=== PATIENT | male | born 1985 | race Caucasian/White ===

== ENCOUNTER 2018-11-21 18:30 | Emergency (ER) | payer BC ==
--- NOTE | 2018-11-21 18:53 | EDM.PDOC ---
ED HPI GENERAL MEDICAL PROBLEM - General Chief Complaint: Skin Complaint Stated Complaint: PT HAS BED BUGS Time Seen by Provider: 11/21/18 18:43 Source of Information: Reports: Patient History Limitations: Reports: No Limitations - History of Present Illness INITIAL COMMENTS - FREE TEXT/NARRATIVE: History of present illness: []Patient is staying a facility that has bedbugs and has bites to his inner right thigh, left leg and right elbow. He saw the bedbugs and he has moved to a different facility. He denies any fevers or any other problems or concerns. Review of systems: As per history of present illness and below otherwise all systems reviewed and negative. Past medical history: As per history of present illness and as reviewed below otherwise noncontributory. Surgical history: As per history of present illness and as reviewed below otherwise noncontributory. Social history: No reported history of drug or alcohol abuse. Family history: As per history of present illness and as reviewed below otherwise noncontributory. Physical exam: General: Well developed, well nourished in NAD HEENT: Atraumatic, normocephalic, pupils reactive, negative for conjunctival pallor or scleral icterus, mucous membranes moist, throat clear, neck supple, nontender, trachea midline. Lungs: Clear to auscultation, breath sounds equal bilaterally, chest nontender. Heart: S1S2, regular, negative for clicks, rubs, or JVD. Abdomen: NABS, Soft, nondistended, nontender. Negative for masses or hepatosplenomegaly. Negative for costovertebral tenderness. Pelvis: Stable nontender. Genitourinary: Deferred. Rectal: Deferred. Extremities: Atraumatic, negative for cords or calf pain. Neurovascular unremarkable. Neuro: Awake, alert, oriented. Cranial nerves II through XII unremarkable. Cerebellum unremarkable. Motor and sensory unremarkable throughout. Exam nonfocal. Skin:warm and dry Diagnostics: None Therapeutics: None ED Course: Stable Impression: Insect bites Prescriptions: None Plan: Benadryl for itching, follow-up with primary care as needed or if symptoms worsen or change. Definitive disposition and diagnosis as appropriate pending reevaluation and review of above. - Related Data Allergies Allergy/AdvReac Type Severity Reaction Status Date / Time No Known Allergies Allergy Verified 11/21/18 18:54 Home Meds: Home Meds . [No Known Home Meds] 11/21/18 [History] ED ROS GENERAL - Review of Systems Review Of Systems: See Below ED EXAM, SKIN/RASH Exam: See Below Course - Vital Signs Last Recorded V/S: Last Vital Signs Temp 98.0 F 11/21/18 18:55 Pulse 77 11/21/18 18:55 Resp 17 11/21/18 18:55 BP 145/60 H 11/21/18 18:55 Pulse Ox 95 11/21/18 18:55 Departure - Departure Time of Disposition: 19:04 Disposition: Home, Self-Care 01 Condition: Good Clinical Impression: Insect bites Qualifiers: Encounter type: initial encounter Site of insect bite: unspecified site Qualified Code(s): W57.XXXA - Bitten or stung by nonvenomous insect and other nonvenomous arthropods, initial encounter - Discharge Information *PRESCRIPTION DRUG MONITORING PROGRAM REVIEWED*: No *COPY OF PRESCRIPTION DRUG MONITORING REPORT IN PATIENT PRATEEK: No Referrals: PCP,None [Primary Care Provider] - Forms: ED Department Discharge Additional Instructions: The following information is given to patients seen in the emergency department who are being discharged to home. This information is to outline your options for follow-up care. We provide all patients seen in our emergency department with a follow-up referral. The need for follow-up, as well as the timing and circumstances, are variable depending upon the specifics of your emergency department visit. If you don't have a primary care physician on staff, we will provide you with a referral. We always advise you to contact your personal physician following an emergency department visit to inform them of the circumstance of the visit and for follow-up with them and/or the need for any referrals to a consulting specialist. The emergency department will also refer you to a specialist when appropriate. This referral assures that you have the opportunity for follow-up care with a specialist. All of these measure are taken in an effort to provide you with optimal care, which includes your follow-up. Under all circumstances we always encourage you to contact your private physician who remains a resource for coordinating your care. When calling for follow-up care, please make the office aware that this follow-up is from your recent emergency room visit. If for any reason you are refused follow-up, please contact the [facility] Emergency Department at and asked to speak to the emergency department charge nurse. [facility] [place] [address]
== END 2018-11-21 19:19 | disposition home or self-care (01) ==
LOC: MW.ED 18:30
DX: S70.361A Insect bite (nonvenomous), right thigh, initial encounter (principal); S80.861A Insect bite (nonvenomous), right lower leg, initial encounter; S50.361A Insect bite (nonvenomous) of right elbow, initial encounter; W57.XXXA Bitten or stung by nonvenomous insect and other nonvenomous arthropods, initial encounter
CPT/HCPCS: 99282

== ENCOUNTER 2018-11-27 14:44 | Emergency (ER) | payer BC ==
[2018-11-27] MEDS ORDERED: Ibuprofen 400 MG Tab PO ONE (14:53)
[2018-11-27] MEDS ORDERED: Sodium Chloride 0.9% 1,000 ML IV ONE ×2 (14:53→16:01)
--- NOTE | 2018-11-27 15:06 | EDM.PDOC ---
ED HPI GENERAL MEDICAL PROBLEM - General Chief Complaint: Fever Stated Complaint: FEVER,CHILLS Time Seen by Provider: 11/27/18 14:50 - History of Present Illness INITIAL COMMENTS - FREE TEXT/NARRATIVE: HISTORY AND PHYSICAL: History of present illness: Patient 33-year-old white male with no significant pre-or history presents with a concern of fever generalized weakness and cough 1 day he denies abdominal pain chest pain has had a mild sore throat denies nausea vomiting or diarrhea patient is a smoker. Review of systems: As per history of present illness and below otherwise all systems reviewed and negative. Past medical history: As per history of present illness and as reviewed below otherwise noncontributory. Surgical history: As per history of present illness and as reviewed below otherwise noncontributory. Social history: No reported history of drug or alcohol abuse. Family history: As per history of present illness and as reviewed below otherwise noncontributory. Physical exam: HEENT: Atraumatic, normocephalic, pupils reactive, negative for conjunctival pallor or scleral icterus, mucous membranes moist, throat clear, neck supple, nontender, trachea midline. Lungs: Clear to auscultation, breath sounds equal bilaterally, chest nontender. Heart: S1S2, regular, negative for clicks, rubs, or JVD. Abdomen: Soft, nondistended, nontender. Negative for masses or hepatosplenomegaly. Negative for costovertebral tenderness. Pelvis: Stable nontender. Genitourinary: Deferred. Rectal: Deferred. Extremities: Atraumatic, negative for cords or calf pain. Neurovascular unremarkable. Neuro: Awake, alert, oriented. Cranial nerves II through XII unremarkable. Cerebellum unremarkable. Motor and sensory unremarkable throughout. Exam nonfocal. Diagnostics: CBC CMP blood culture 2 rapid strep chest x-ray Therapeutics: Saline 1 L bolus Motrin 400 mg by mouth Impression: #1 fever #2 pneumonitis Definitive disposition and diagnosis as appropriate pending reevaluation and review of above. headache, body Pain Score (Numeric/FACES): 5 - Related Data Allergies Allergy/AdvReac Type Severity Reaction Status Date / Time No Known Allergies Allergy Verified 11/27/18 14:52 Home Meds: Home Meds . [No Known Home Meds] 11/21/18 [History] Past Medical History - Past Health History Medical/Surgical History: Denies Medical/Surgical History Other Musculoskeletal History: hx fractured lower vertebrae - Infectious Disease History Infectious Disease History: Reports: Chicken Pox Social & Family History - Family History Family Medical History: Noncontributory - Tobacco Use Smoking Status *Q: Current Every Day Smoker Years of Tobacco use: 15 Packs/Tins Daily: 1 - Caffeine Use Caffeine Use: Reports: Coffee, Energy Drinks - Recreational Drug Use Recreational Drug Use: No ED ROS GENERAL - Review of Systems Review Of Systems: ROS reveals no pertinent complaints other than HPI. ED EXAM, GENERAL - Physical Exam Exam: See Below (See dictation) Course - Vital Signs Last Recorded V/S: Last Vital Signs Temp 37.4 C 11/27/18 17:00 Pulse 104 H 11/27/18 17:00 Resp 20 11/27/18 17:00 BP 105/41 L 11/27/18 17:00 Pulse Ox 95 11/27/18 17:00 - Orders/Labs/Meds Orders: Active Orders 24 hr Category Date Time Status CULTURE BLOOD [BC] Stat Lab 11/27/18 15:05 Received CULTURE BLOOD [BC] Stat Lab 11/27/18 15:16 Received CULTURE STREP A CONFIRMATION [RM] Stat Lab 11/27/18 15:10 Results STREP SCRN A RAPID W CULT CONF [RM] Stat Lab 11/27/18 15:10 Results Blood Culture x2 Reflex Set [OM.PC] Stat Oth 11/27/18 14:53 Ordered Labs: Laboratory Tests 11/27/18 11/27/18 11/27/18 Range/Units 15:05 15:05 15:05 WBC 16.44 H (4.0-11.0) K/uL RBC 5.14 (4.50-5.90) M/uL Hgb 15.3 (13.0-17.0) g/dL Hct 44.8 (38.0-50.0) % MCV 87.2 (80.0-98.0) fL MCH 29.8 (27.0-32.0) pg MCHC 34.2 (31.0-37.0) g/dL RDW Std Deviation 45.0 (28.0-62.0) fl RDW Coeff of Cindy 14 (11.0-15.0) % Plt Count 235 (150-400) K/uL MPV 9.60 (7.40-12.00) fL Neut % (Auto) 83.0 H (48.0-80.0) % Lymph % (Auto) 7.9 L (16.0-40.0) % Citrus % (Auto) 8.9 (0.0-15.0) % Eos % (Auto) 0.0 (0.0-7.0) % Baso % (Auto) 0.2 (0.0-1.5) % Neut # (Auto) 13.7 H (1.4-5.7) K/uL Lymph # (Auto) 1.3 (0.6-2.4) K/uL [place] # (Auto) 1.5 H (0.0-0.8) K/uL Eos # (Auto) 0.0 (0.0-0.7) K/uL Baso # (Auto) 0.0 (0.0-0.1) K/uL Nucleated RBC % 0.0 /100WBC Nucleated RBCs # 0 K/uL Lactate 1.4 (0.20-2.00) mmol/L Sodium 134 L (136-148) mmol/L Potassium 4.2 (3.5-5.1) mmol/L Chloride 101 (98-107) mmol/L Carbon Dioxide 23.8 (21.0-32.0) mmol/L BUN 18 (7.0-18.0) mg/dL Creatinine 1.1 (0.8-1.3) mg/dL Est Cr Clr Drug Dosing 92.41 mL/min Estimated GFR (MDRD) > 60.0 ml/min Glucose 106 (74-106) mg/dL Calcium 8.6 (8.5-10.1) mg/dL Total Bilirubin 0.6 (0.2-1.0) mg/dL AST 16 (15-37) IU/L ALT 34 (14-63) IU/L Alkaline Phosphatase 97 (46-116) U/L Total Protein 7.7 (6.4-8.2) g/dL Albumin 3.8 (3.4-5.0) g/dL Globulin 3.9 (2.6-4.0) g/dL Albumin/Globulin Ratio 1.0 (0.9-1.6) Urine Color Urine Appearance Urine pH (5.0-8.0) Ur Specific [place] (1.001-1.035) Urine Protein (NEGATIVE) mg/dL Urine Glucose (UA) (NEGATIVE) mg/dL Urine Ketones (NEGATIVE) mg/dL Urine Occult Blood (NEGATIVE) Urine Nitrite (NEGATIVE) Urine Bilirubin (NEGATIVE) Urine Urobilinogen (<2.0) EU/dL Ur Leukocyte Esterase (NEGATIVE) 11/27/18 Range/Units 16:20 WBC (4.0-11.0) K/uL RBC (4.50-5.90) M/uL Hgb (13.0-17.0) g/dL Hct (38.0-50.0) % MCV (80.0-98.0) fL MCH (27.0-32.0) pg MCHC (31.0-37.0) g/dL RDW Std Deviation (28.0-62.0) fl RDW Coeff of Cindy (11.0-15.0) % Plt Count (150-400) K/uL MPV (7.40-12.00) fL Neut % (Auto) (48.0-80.0) % Lymph % (Auto) (16.0-40.0) % [place] % (Auto) (0.0-15.0) % Eos % (Auto) (0.0-7.0) % Baso % (Auto) (0.0-1.5) % Neut # (Auto) (1.4-5.7) K/uL Lymph # (Auto) (0.6-2.4) K/uL [place] # (Auto) (0.0-0.8) K/uL Eos # (Auto) (0.0-0.7) K/uL Baso # (Auto) (0.0-0.1) K/uL Nucleated RBC % /100WBC Nucleated RBCs # K/uL Lactate (0.20-2.00) mmol/L Sodium (136-148) mmol/L Potassium (3.5-5.1) mmol/L Chloride (98-107) mmol/L Carbon Dioxide (21.0-32.0) mmol/L BUN (7.0-18.0) mg/dL Creatinine (0.8-1.3) mg/dL Est Cr Clr Drug Dosing mL/min Estimated GFR (MDRD) ml/min Glucose (74-106) mg/dL Calcium (8.5-10.1) mg/dL Total Bilirubin (0.2-1.0) mg/dL AST (15-37) IU/L ALT (14-63) IU/L Alkaline Phosphatase (46-116) U/L Total Protein (6.4-8.2) g/dL Albumin (3.4-5.0) g/dL Globulin (2.6-4.0) g/dL Albumin/Globulin Ratio (0.9-1.6) Urine Color YELLOW Urine Appearance CLEAR Urine pH 6.0 (5.0-8.0) Ur Specific [place] 1.020 (1.001-1.035) Urine Protein NEGATIVE (NEGATIVE) mg/dL Urine Glucose (UA) NEGATIVE (NEGATIVE) mg/dL Urine Ketones NEGATIVE (NEGATIVE) mg/dL Urine Occult Blood NEGATIVE (NEGATIVE) Urine Nitrite NEGATIVE (NEGATIVE) Urine Bilirubin NEGATIVE (NEGATIVE) Urine Urobilinogen 0.2 (<2.0) EU/dL Ur Leukocyte Esterase NEGATIVE (NEGATIVE) Meds: Medications Discontinued Medications Generic Name Dose Route Start Last Admin Trade Name Freq PRN Reason Stop Dose Admin Acetaminophen 1,000 mg 11/27/18 16:02 11/27/18 16:19 Tylenol Extra Strength PO 11/27/18 16:03 1,000 mg ONETIME ONE Administration Sodium Chloride 1,000 mls @ 999 mls/hr 11/27/18 14:53 11/27/18 15:06 Normal Saline IV 11/27/18 15:53 999 mls/hr STAT ONE Administration Sodium Chloride 1,000 mls @ 999 mls/hr 11/27/18 16:01 11/27/18 16:19 Normal Saline IV 11/27/18 17:01 999 mls/hr .Bolus ONE Administration Ibuprofen 400 mg 11/27/18 14:53 11/27/18 15:07 Motrin PO 11/27/18 14:54 400 mg ONETIME ONE Administration Departure - Departure Time of Disposition: 17:22 Disposition: Home, Self-Care 01 Condition: Good Clinical Impression: Pneumonitis, Fever - Discharge Information Referrals: PCP,None [Primary Care Provider] - Forms: ED Department Discharge Additional Instructions: The following information is given to patients seen in the emergency department who are being discharged to home. This information is to outline your options for follow-up care. We provide all patients seen in our emergency department with a follow-up referral. The need for follow-up, as well as the timing and circumstances, are variable depending upon the specifics of your emergency department visit. If you don't have a primary care physician on staff, we will provide you with a referral. We always advise you to contact your personal physician following an emergency department visit to inform them of the circumstance of the visit and for follow-up with them and/or the need for any referrals to a consulting specialist. The emergency department will also refer you to a specialist when appropriate. This referral assures that you have the opportunity for followup care with a specialist. All of these measure are taken in an effort to provide you with optimal care, which includes your followup. Under all circumstances we always encourage you to contact your private physician who remains a resource for coordinating your care. When calling for followup care, please make the office aware that this follow-up is from your recent emergency room visit. If for any reason you are refused follow-up, please contact the [facility] emergency department at and asked to speak to the emergency department charge nurse. [facility] [address] [place] [address] Z-Lupillo as prescribed Motrin/Tylenol as directed push fluids follow primary care as discussed and return as needed as discussed - My Orders Last 24 Hours: My Active Orders 11/27/18 14:53 Blood Culture x2 Reflex Set [OM.PC] Stat 11/27/18 15:05 CULTURE BLOOD [BC] Stat 11/27/18 15:10 CULTURE STREP A CONFIRMATION [RM] Stat STREP SCRN A RAPID W CULT CONF [RM] Stat 11/27/18 15:16 CULTURE BLOOD [BC] Stat - Assessment/Plan Last 24 Hours: My Active Orders 11/27/18 14:53 Blood Culture x2 Reflex Set [OM.PC] Stat 11/27/18 15:05 CULTURE BLOOD [BC] Stat 11/27/18 15:10 CULTURE STREP A CONFIRMATION [RM] Stat STREP SCRN A RAPID W CULT CONF [RM] Stat 11/27/18 15:16 CULTURE BLOOD [BC] Stat
[2018-11-27 15:45] LABS: CHLORIDE,CL 101 mmol/L (98-107); SODIUM,NA 134 mmol/L (136-148)
--- NOTE | 2018-11-27 15:59 | CR ---
EXAMINATION: Portable chest radiograph. HISTORY: Shortness breath. FINDINGS: The trachea is midline. The cardiomediastinal silhouette is within normal limits. No pulmonary infiltrates, effusions or pneumothorax. Osseous structures appear unremarkable. IMPRESSION: No acute cardiopulmonary process.
[2018-11-27] MEDS ORDERED: Acetaminophen 500 MG Tab PO ONE (16:02)
== END 2018-11-27 17:40 | disposition home or self-care (01) ==
LOC: MW.ED 14:44
DX: J18.9 Pneumonia, unspecified organism (principal); F17.210 Nicotine dependence, cigarettes, uncomplicated
CPT/HCPCS: 36415; 71045; 80053; 81003; 83605; 85025; 87040; 87081; 87880; 96360; 96361; 99283; A9270; J7040

== ENCOUNTER 2018-11-28 21:30 | Observation (INO) | payer BC ==
[2018-11-28] MEDS ORDERED: Sodium Chloride 0.9% 1,000 ML IV ONE (21:58)
[2018-11-28] MEDS ORDERED: Sodium Chloride 0.9% 10 ML Syringe FLUSH PRN (21:58)
[2018-11-28] MEDS ORDERED: Sodium Chloride 0.9% 2.5 ML Syringe FLUSH PRN (21:58)
--- NOTE | 2018-11-28 21:59 | EDM.PDOC ---
<Vashti Zhu - Last Filed: 11/28/18 23:01> ED HPI GENERAL MEDICAL PROBLEM - General Chief Complaint: Gastrointestinal Problem Stated Complaint: PT HAS DIARRHEA Time Seen by Provider: 11/28/18 21:59 Source of Information: Reports: Patient History Limitations: Reports: No Limitations - History of Present Illness INITIAL COMMENTS - FREE TEXT/NARRATIVE: HISTORY AND PHYSICAL: History of present illness: patient is a 33-year-old male presents to the ED with complaint of diarrhea. He states he was seen in the ED yesterday for cough and shortness of breath and feeling weak. He states he is given azithromycin and states he has left yesterday he has been having a lot of watery diarrhea to the point where he is incontinent. He has had chills but denies fevers and he states he's been having a crampy abdominal pain. He has had a couple episodes of vomiting. Denies dysuria, hematuria, melena, hematochezia. he denies significant past medical history and denies abdominal surgeries. Review of systems: As per history of present illness and below otherwise all systems reviewed and negative. Past medical history: As per history of present illness and as reviewed below otherwise noncontributory. Surgical history: As per history of present illness and as reviewed below otherwise noncontributory. Social history: No reported history of drug or alcohol abuse. Family history: As per history of present illness and as reviewed below otherwise noncontributory. Physical exam: General: Patient sitting comfortably in no acute distress and nontoxic appearing HEENT: Atraumatic, normocephalic, pupils reactive, negative for conjunctival pallor or scleral icterus, mucous membranes moist, throat clear, neck supple, nontender, trachea midline. No meningeal signs. Lungs: Clear to auscultation, breath sounds equal bilaterally, chest nontender. Heart: S1S2, regular, negative for clicks, rubs, or overt murmur. Abdomen: mild diffuse abdominal tenderness. Soft, nondistended. Negative for masses or hepatosplenomegaly. Negative for costovertebral tenderness. No rigidity, rebound, guarding. Pelvis: Stable nontender. Genitourinary: Deferred. Rectal: Deferred. Extremities: Atraumatic, negative for cords or calf pain. Neurovascular unremarkable. Neuro: Awake, alert, oriented. Cranial nerves II through XII unremarkable. Cerebellum unremarkable. Motor and sensory unremarkable throughout. Exam nonfocal. Notes: Diagnostics: CBC, CMP, lipase, UA, CT abdomen pelvis with contrast Therapeutics: 1L NS IV Prescriptions: Impression: Diarrhea, gastroenteritis Plan: Definitive disposition and diagnosis as appropriate pending reevaluation and review of above. Abdomen Pain Score (Numeric/FACES): 4 - Related Data Allergies Allergy/AdvReac Type Severity Reaction Status Date / Time No Known Allergies Allergy Verified 11/28/18 21:42 Home Meds: Home Meds . [No Known Home Meds] 11/21/18 [History] Past Medical History - Past Health History Medical/Surgical History: Denies Medical/Surgical History Other Musculoskeletal History: hx fractured lower vertebrae - Infectious Disease History Infectious Disease History: Reports: None Social & Family History - Family History Family Medical History: Noncontributory - Tobacco Use Smoking Status *Q: Current Every Day Smoker Years of Tobacco use: 13 Packs/Tins Daily: 1 - Caffeine Use Caffeine Use: Reports: Coffee, Energy Drinks, Tea - Recreational Drug Use Recreational Drug Use: No ED ROS GENERAL - Review of Systems Review Of Systems: ROS reveals no pertinent complaints other than HPI. ED EXAM, GI/ABD - Physical Exam Exam: See Below (see dictation) Course - Vital Signs Last Recorded V/S: Last Vital Signs Temp 37.1 C 11/29/18 00:45 Pulse 89 11/29/18 01:44 Resp 18 11/29/18 01:44 BP 136/66 11/29/18 01:44 Pulse Ox 94 L 11/29/18 01:44 - Orders/Labs/Meds Orders: Active Orders 24 hr Category Date Time Status Sodium Chloride 0.9% [Saline Flush] Med 11/28/18 21:58 Active 10 ml FLUSH ASDIRECTED PRN Sodium Chloride 0.9% [Saline Flush] Med 11/28/18 21:58 Active 2.5 ml FLUSH ASDIRECTED PRN Saline Lock Insert [OM.PC] Stat Oth 11/28/18 21:58 Ordered Medication Orders Sodium Chloride (Saline Flush) 10 ml FLUSH ASDIRECTED PRN PRN Reason: Keep Vein Open Sodium Chloride (Saline Flush) 2.5 ml FLUSH ASDIRECTED PRN PRN Reason: Keep Vein Open Labs: Laboratory Tests 11/28/18 11/28/18 11/28/18 Range/Units 22:19 22:19 22:19 WBC 13.09 H (4.0-11.0) K/uL RBC 5.30 (4.50-5.90) M/uL Hgb 15.7 (13.0-17.0) g/dL Hct 45.5 (38.0-50.0) % MCV 85.8 (80.0-98.0) fL MCH 29.6 (27.0-32.0) pg MCHC 34.5 (31.0-37.0) g/dL RDW Std Deviation 43.7 (28.0-62.0) fl RDW Coeff of Cindy 14 (11.0-15.0) % Plt Count 187 (150-400) K/uL MPV 9.20 (7.40-12.00) fL Neut % (Auto) 80.6 H (48.0-80.0) % Lymph % (Auto) 9.6 L (16.0-40.0) % [place] % (Auto) 9.5 (0.0-15.0) % Eos % (Auto) 0.1 (0.0-7.0) % Baso % (Auto) 0.2 (0.0-1.5) % Neut # (Auto) 10.6 H (1.4-5.7) K/uL Lymph # (Auto) 1.3 (0.6-2.4) K/uL [place] # (Auto) 1.3 H (0.0-0.8) K/uL Eos # (Auto) 0.0 (0.0-0.7) K/uL Baso # (Auto) 0.0 (0.0-0.1) K/uL Nucleated RBC % 0.0 /100WBC Nucleated RBCs # 0 K/uL Sodium 134 L (136-148) mmol/L Potassium 3.7 (3.5-5.1) mmol/L Chloride 98 (98-107) mmol/L Carbon Dioxide 25.8 (21.0-32.0) mmol/L BUN 11 (7.0-18.0) mg/dL Creatinine 1.1 (0.8-1.3) mg/dL Est Cr Clr Drug Dosing 92.41 mL/min Estimated GFR (MDRD) > 60.0 ml/min Glucose 101 (74-106) mg/dL Calcium 8.6 (8.5-10.1) mg/dL Total Bilirubin 0.5 (0.2-1.0) mg/dL AST 19 (15-37) IU/L ALT 32 (14-63) IU/L Alkaline Phosphatase 96 (46-116) U/L Total Protein 7.6 (6.4-8.2) g/dL Albumin 3.2 L (3.4-5.0) g/dL Globulin 4.4 H (2.6-4.0) g/dL Albumin/Globulin Ratio 0.7 L (0.9-1.6) Lipase 87 (73-393) U/L Urine Color YELLOW Urine Appearance CLEAR Urine pH 6.0 (5.0-8.0) Ur Specific [place] >= 1.030 (1.001-1.035) Urine Protein 100 H (NEGATIVE) mg/dL Urine Glucose (UA) NEGATIVE (NEGATIVE) mg/dL Urine Ketones NEGATIVE (NEGATIVE) mg/dL Urine Occult Blood MODERATE H (NEGATIVE) Urine Nitrite NEGATIVE (NEGATIVE) Urine Bilirubin NEGATIVE (NEGATIVE) Urine Urobilinogen 0.2 (<2.0) EU/dL Ur Leukocyte Esterase NEGATIVE (NEGATIVE) Urine RBC 0-2 (0-2/HPF) Urine WBC 0-1 (0-5/HPF) Ur Epithelial Cells RARE (NONE-FEW) Urine Bacteria RARE (NEGATIVE) Urine Mucus LIGHT (NONE-MOD) Meds: Medications Generic Name Dose Route Start Last Admin Trade Name Freq PRN Reason Stop Dose Admin Sodium Chloride 10 ml 11/28/18 21:58 Saline Flush FLUSH ASDIRECTED PRN Keep Vein Open Sodium Chloride 2.5 ml 11/28/18 21:58 Saline Flush FLUSH ASDIRECTED PRN Keep Vein Open Discontinued Medications Generic Name Dose Route Start Last Admin Trade Name Freq PRN Reason Stop Dose Admin Sodium Chloride 1,000 mls @ 999 mls/hr 11/28/18 21:58 11/28/18 22:15 Normal Saline IV 11/28/18 22:58 999 mls/hr STAT ONE Administration Metronidazole 500 mg/ Premix 100 mls @ 100 mls/hr 11/29/18 00:59 11/29/18 01: 10 IV 11/29/18 01:58 100 mls/hr ONETIME ONE Administration Levofloxacin/Dextrose 750 mg/ 150 mls @ 100 mls/hr 11/29/18 01:00 11/29/18 02 :10 Premix IV 11/29/18 02:29 100 mls/hr ONETIME ONE Administration Iopamidol 100 ml 11/28/18 23:46 11/28/18 23:46 Isovue Multipack-370 (76%) IVPUSH 11/28/18 23:47 100 ml ONETIME STA Administration Departure - Departure Disposition: Refer to Observation Condition: Good Clinical Impression: Diarrhea, Colitis - Discharge Information Referrals: PCP,None [Primary Care Provider] - Forms: ED Department Discharge <Jaspreet Lopez - Last Filed: 11/29/18 03:04> ED ROS GENERAL - Review of Systems Review Of Systems: ROS reveals no pertinent complaints other than HPI. ED EXAM, GI/ABD - Physical Exam Exam: See Below (C dictation) Departure - Departure Time of Disposition: 03:04
[2018-11-28 22:52] LABS: CHLORIDE,CL 98 mmol/L (98-107); SODIUM,NA 134 mmol/L (136-148)
[2018-11-28] MEDS ORDERED: Iopamidol 755 MG/ML 500 ML Multipack Bottle IVPUSH STA (23:46)
--- NOTE | 2018-11-29 00:12 | CT ---
INDICATION: Diarrhea for 2 days TECHNIQUE: CT Abdomen and pelvis with i.v. contrast. Coronal and sagittal reformats were obtained. CONTRAST: 100 mL Isovue 370 COMPARISON: None FINDINGS: Lower chest: Unremarkable. Liver: Unremarkable. Spleen: Unremarkable. Pancreas: Unremarkable. Gallbladder: Unremarkable. Kidney: Excretion of contrast into the renal collecting systems noted, which limits evaluation for the presence of stones. Adrenal: Unremarkable. Bowel: Mild to moderate concentric wall thickening is noted in the ascending colon. The appendix is normal in appearance and size. Vascular: Unremarkable. Lymph: Multiple retroperitoneal lymph nodes are present in the upper abdomen measuring up to 11 mm. Several right inguinal lymph nodes are present with largest measuring 9 mm. Peritoneum: Unremarkable. No pneumoperitoneum is seen. No significant ascites is noted. Pelvis: Unremarkable. Soft tissue: Unremarkable. Bone: Unremarkable for age. IMPRESSIONS: 1. Mild to moderate concentric wall thickening is noted in the ascending colon. This may be due to infectious colitis or inflammatory bowel disease. 2. Multiple retroperitoneal lymph nodes are present in the upper abdomen measuring up to 11 mm. Follow-up imaging is recommended to document stability or resolution Dictated by Moreno Cottrell MD @ 11/29/2018 12:10:23 AM Please note that all CT scans at this facility use dose modulation, iterative reconstruction, and/or weight-based dosing when appropriate to reduce radiation dose to as low as reasonably achievable. Dictated by: Moreno Cottrell MD @ 11/29/2018 00:10:37 (Electronically Signed)
[2018-11-29] MEDS ORDERED: metroNIDAZOLE/Normal Saline 500 MG in Premix Bag 1 BAG IV ONE (00:59)
[2018-11-29] MEDS ORDERED: Levofloxacin/Dextrose 5%-Water 750 MG in Premix Bag 1 BAG IV ONE (01:00)
[2018-11-29] MEDS ORDERED: Morphine 2 MG/ML Syringe IVPUSH PRN (05:12)
[2018-11-29] MEDS: Sodium Chloride 0.9% 1,000 ML IV SCH ×2 (05:31→15:11)
[2018-11-29] MEDS: metroNIDAZOLE/Normal Saline 500 MG in Premix Bag 1 BAG IV SCH ×3 (06:51→18:27)
--- NOTE | 2018-11-29 13:15 | PCM.HP ---
H&P History of Present Illness - General Date of Service: 11/29/18 Admit Problem/Dx: Admission Diagnosis/Problem Admission Diagnosis/Problem Colitis - History of Present Illness Initial Comments - Free Text/Narative: 33 yo male who presents with two day history of diarrhea and abdominal pain. Patient reports water diarrhea every two hours. He report crampy abdominal pain when he has a bowel movement. He denies any fevers, cough, shortness of breath. CT scan of the abdomen reported concentric wall thickening of the ascending colon and retroperitoneal lymph nodes. Abdomen Pain Score (Numeric/FACES): 2 - Related Data Allergies/Adverse Reactions: Allergies Allergy/AdvReac Type Severity Reaction Status Date / Time No Known Allergies Allergy Verified 11/29/18 07:42 Home Medications: Home Meds . [No Known Home Meds] 11/21/18 [History] Past Medical History - Past Health History Medical/Surgical History: Denies Medical/Surgical History Gastrointestinal History: Reports: Other (See Below) Other Gastrointestinal History: Has had diarrhea "once in a while", prior to this Musculoskeletal History: Reports: Fracture Other Musculoskeletal History: hx fractured lower vertebrae Dermatologic History: Reports: Other (See Below) Other Dermatologic History: Was on an antibiotic for bed bugs approximately 2 weeks ago also - Infectious Disease History Infectious Disease History: Reports: None Social & Family History - Family History Family Medical History: Noncontributory - Tobacco Use Smoking Status *Q: Current Every Day Smoker Years of Tobacco use: 13 Packs/Tins Daily: 1 - Caffeine Use Caffeine Use: Reports: Coffee, Energy Drinks, Soda, Tea - Recreational Drug Use Recreational Drug Use: No H&P Review of Systems - Review of Systems: Review Of Systems: ROS reveals no pertinent complaints other than HPI. Exam - Exam Exam: See Below - Vital Signs Vital Signs: Last Vital Signs Temp 36.7 C 11/29/18 12:00 Pulse 81 11/29/18 12:00 Resp 14 11/29/18 12:00 BP 111/68 11/29/18 12:00 Pulse Ox 95 11/29/18 12:00 Weight: 107.411 kg - Exam General: Alert, Oriented HEENT: Mucosa Moist & Ring[place] Neck: Supple Lungs: Clear to Auscultation, Normal Respiratory Effort Cardiovascular: Regular Rate, Regular Rhythm GI/Abdominal Exam: Normal Bowel Sounds, Soft, Non-Tender, No Distention Extremities: Non-Tender, No Pedal Edema Skin: Warm, Dry, Intact - Patient Data Lab Results Last 24 hrs: Laboratory Results - last 24 hr 11/28/18 11/28/18 11/28/18 Range/Units 22:19 22:19 22:19 WBC 13.09 H (4.0-11.0) K/uL RBC 5.30 (4.50-5.90) M/uL Hgb 15.7 (13.0-17.0) g/dL Hct 45.5 (38.0-50.0) % MCV 85.8 (80.0-98.0) fL MCH 29.6 (27.0-32.0) pg MCHC 34.5 (31.0-37.0) g/dL RDW Std Deviation 43.7 (28.0-62.0) fl RDW Coeff of Cindy 14 (11.0-15.0) % Plt Count 187 (150-400) K/uL MPV 9.20 (7.40-12.00) fL Neut % (Auto) 80.6 H (48.0-80.0) % Lymph % (Auto) 9.6 L (16.0-40.0) % [place] % (Auto) 9.5 (0.0-15.0) % Eos % (Auto) 0.1 (0.0-7.0) % Baso % (Auto) 0.2 (0.0-1.5) % Neut # (Auto) 10.6 H (1.4-5.7) K/uL Lymph # (Auto) 1.3 (0.6-2.4) K/uL [place] # (Auto) 1.3 H (0.0-0.8) K/uL Eos # (Auto) 0.0 (0.0-0.7) K/uL Baso # (Auto) 0.0 (0.0-0.1) K/uL Nucleated RBC % 0.0 /100WBC Nucleated RBCs # 0 K/uL Sodium 134 L (136-148) mmol/L Potassium 3.7 (3.5-5.1) mmol/L Chloride 98 (98-107) mmol/L Carbon Dioxide 25.8 (21.0-32.0) mmol/L BUN 11 (7.0-18.0) mg/dL Creatinine 1.1 (0.8-1.3) mg/dL Est Cr Clr Drug Dosing 92.41 mL/min Estimated GFR (MDRD) > 60.0 ml/min Glucose 101 (74-106) mg/dL Calcium 8.6 (8.5-10.1) mg/dL Total Bilirubin 0.5 (0.2-1.0) mg/dL AST 19 (15-37) IU/L ALT 32 (14-63) IU/L Alkaline Phosphatase 96 (46-116) U/L Total Protein 7.6 (6.4-8.2) g/dL Albumin 3.2 L (3.4-5.0) g/dL Globulin 4.4 H (2.6-4.0) g/dL Albumin/Globulin Ratio 0.7 L (0.9-1.6) Lipase 87 (73-393) U/L Urine Color YELLOW Urine Appearance CLEAR Urine pH 6.0 (5.0-8.0) Ur Specific [place] >= 1.030 (1.001-1.035) Urine Protein 100 H (NEGATIVE) mg/dL Urine Glucose (UA) NEGATIVE (NEGATIVE) mg/dL Urine Ketones NEGATIVE (NEGATIVE) mg/dL Urine Occult Blood MODERATE H (NEGATIVE) Urine Nitrite NEGATIVE (NEGATIVE) Urine Bilirubin NEGATIVE (NEGATIVE) Urine Urobilinogen 0.2 (<2.0) EU/dL Ur Leukocyte Esterase NEGATIVE (NEGATIVE) Urine RBC 0-2 (0-2/HPF) Urine WBC 0-1 (0-5/HPF) Ur Epithelial Cells RARE (NONE-FEW) Urine Bacteria RARE (NEGATIVE) Urine Mucus LIGHT (NONE-MOD) Result Diagrams: 11/28/18 22:19 11/28/18 22:19 Glynn Results Last 24 hrs: Microbiology 11/29/18 05:25 Clostridium difficile Toxin A & B - Final Stool / Feces Negative for C.Diff Toxin/AG REFERENCE RANGE: NEGATIVE 11/29/18 05:25 Campylobacter Antigen Assay - Final Stool / Feces NEGATIVE CAMPYLOBACTER AG REFERENCE RANGE: NEGATIVE Problem List Initiated/Reviewed/Updated: Yes Orders Last 24hrs: Active Orders 24 hr Category Date Time Status Patient Status [ADT] Stat ADT 11/29/18 03:04 Active Antiembolic Devices [RC] PER UNIT ROUTINE Care 11/29/18 13:11 Ordered Oxygen Therapy [RC] PRN Care 11/29/18 13:10 Ordered Up ad Layne [RC] ASDIRECTED Care 11/29/18 13:10 Ordered VTE/DVT Education [RC] PER UNIT ROUTINE Care 11/29/18 13:10 Ordered Vital Signs [RC] Q4H Care 11/29/18 13:10 Ordered Clear Liquid Diet [DIET] Diet 11/29/18 Breakfast Active CBC WITH AUTO DIFF [HEME] AM Lab 11/30/18 05:11 Ordered CBC WITH AUTO DIFF [HEME] Routine Lab 11/29/18 13:10 Ordered COMPREHENSIVE METABOLIC PN,CMP [CHEM] AM Lab 11/30/18 05:11 Ordered COMPREHENSIVE METABOLIC PN,CMP [CHEM] Routine Lab 11/29/18 13:10 Ordered CULTURE STOOL + CAMPY+SHIGATOX [RM] Routine Lab 11/29/18 05:25 Results Levofloxacin/Dextrose 5%-Water [Levaquin in D5W 750 MG/ Med 11/30/18 02:00 Active 150 ML] 750 mg Premix Bag 1 bag IV Q24H Morphine Med 11/29/18 05:12 Active 2 mg IVPUSH Q4H PRN Sodium Chloride 0.9% [Normal Saline] 1,000 ml Med 11/29/18 05:30 Active IV ASDIRECTED Sodium Chloride 0.9% [Saline Flush] Med 11/28/18 21:58 Active 10 ml FLUSH ASDIRECTED PRN Sodium Chloride 0.9% [Saline Flush] Med 11/28/18 21:58 Active 2.5 ml FLUSH ASDIRECTED PRN metroNIDAZOLE/Normal Saline [Flagyl 500 MG in NS 100 ML Med 11/29/18 07:00 Active ] 500 mg Premix Bag 1 bag IV Q6H Isolation [COMM] Stat Oth 11/29/18 05:09 Ordered Saline Lock Insert [OM.PC] Stat Oth 11/28/18 21:58 Ordered Sequential Compression Device [OM.PC] Per Unit Routine Oth 11/29/18 13:10 Ordered Resuscitation Status Routine Resus Stat 11/29/18 13:10 Ordered Medication Orders Levofloxacin/Dextrose 750 mg/ (Premix) 150 mls @ 100 mls/hr IV Q24H [facility] Metronidazole 500 mg/ Premix 100 mls @ 100 mls/hr IV Q6H [facility] Last Admin: 11/29/18 12:43 Dose: 100 mls/hr Infusion: 11/29/18 07:51 Dose: 100 mls/hr Admin: 11/29/18 06:51 Dose: 100 mls/hr Sodium Chloride (Normal Saline) 1,000 mls @ 125 mls/hr IV ASDIRECTED [facility] Last Admin: 11/29/18 05:31 Dose: 125 mls/hr Morphine Sulfate (Morphine) 2 mg IVPUSH Q4H PRN PRN Reason: Pain Sodium Chloride (Saline Flush) 10 ml FLUSH ASDIRECTED PRN PRN Reason: Keep Vein Open Sodium Chloride (Saline Flush) 2.5 ml FLUSH ASDIRECTED PRN PRN Reason: Keep Vein Open Assessment/Plan Comment:: 33 yo male admitted for colitis. We will treat with Levaquin and Flagyl. Stool cultures ordered. Will hydrate with IV fluids and keep on clear liquid diet.
[2018-11-29 14:10] LABS: CHLORIDE,CL 103 mmol/L (98-107); SODIUM,NA 137 mmol/L (136-148)
[2018-11-30] MEDS: Sodium Chloride 0.9% 1,000 ML IV SCH (00:02)
[2018-11-30] MEDS ORDERED: Levofloxacin/Dextrose 5%-Water 750 MG in Premix Bag 1 BAG IV SCH (02:00)
[2018-11-30 06:07] LABS: CHLORIDE,CL 103 mmol/L (98-107); SODIUM,NA 136 mmol/L (136-148)
[2018-11-30] MEDS: metroNIDAZOLE/Normal Saline 500 MG in Premix Bag 1 BAG IV SCH ×3 (07:11)
--- NOTE | 2018-11-30 11:59 | PCM.DCSUM1 ---
Discharge Summary - Discharge Data Discharge Date: 11/30/18 Discharge Disposition: Home, Self-Care 01 Condition: Good - Patient Summary/Data Hospital Course: 33 yo male who was admitted for colitis. He presented with two day history of diarrhea and abdominal pain. CT scan of the abdomen reported concentric wall thickening of the ascending colon and retroperitoneal lymph nodes. He was treated with IV levaquin and Flagyl. His symptoms resolved and he is requesting discharge. He was informed of the results of his CT scan and the recommendation for follow up CT scan. He was discharged home on oral antibiotics for ten more days. He was referred to a primary care provider and outpatient colonoscopy. - Patient Instructions Diet: Regular Diet as Tolerated Activity: As Tolerated - Discharge Plan Prescriptions/Med Rec: Ciprofloxacin [Ciprofloxacin HCl] 500 mg PO BID #20 tab metroNIDAZOLE [Flagyl] 500 mg PO Q8H #30 tab Home Medications: Home Meds Ciprofloxacin [Ciprofloxacin HCl] 500 mg PO BID #20 tab 11/30/18 [Rx] metroNIDAZOLE [Flagyl] 500 mg PO Q8H #30 tab 11/30/18 [Rx] Patient Handouts: Gastritis, Adult, [id number] Referrals: Suyapa Orozco MD [Ordering Only Provider] - 12/20/18 1:00 pm - Discharge Summary/Plan Comment DC Time >30 min.: No - Patient Data Vitals - Most Recent: Last Vital Signs Temp 36.2 C 11/30/18 07:21 Pulse 73 11/30/18 07:21 Resp 17 11/30/18 07:21 BP 121/60 11/30/18 07:21 Pulse Ox 95 11/30/18 10:21 Weight - Most Recent: 107.411 kg I&O - Last 24 hours: Intake & Output 11/29/18 11/30/18 11/30/18 22:59 06:59 14:59 Intake Total 2674 2190 100 Output Total 750 Balance 1924 2190 100 Lab Results - Last 24 hrs: Laboratory Results - last 24 hr 11/29/18 11/29/18 11/30/18 Range/Units 13:21 13:21 05:18 WBC 11.16 H 9.91 (4.0-11.0) K/uL RBC 4.86 4.70 (4.50-5.90) M/uL Hgb 14.0 13.6 (13.0-17.0) g/dL Hct 41.8 40.3 (38.0-50.0) % MCV 86.0 85.7 (80.0-98.0) fL MCH 28.8 28.9 (27.0-32.0) pg MCHC 33.5 33.7 (31.0-37.0) g/dL RDW Std Deviation 44.2 43.7 (28.0-62.0) fl RDW Coeff of Cindy 14 14 (11.0-15.0) % Plt Count 182 207 (150-400) K/uL MPV 9.60 9.60 (7.40-12.00) fL Neut % (Auto) 69.5 (48.0-80.0) % Lymph % (Auto) 14.9 L (16.0-40.0) % [place] % (Auto) 14.2 (0.0-15.0) % Eos % (Auto) 1.1 (0.0-7.0) % Baso % (Auto) 0.3 (0.0-1.5) % Neut # (Auto) 7.8 H (1.4-5.7) K/uL Lymph # (Auto) 1.7 (0.6-2.4) K/uL [place] # (Auto) 1.6 H (0.0-0.8) K/uL Eos # (Auto) 0.1 (0.0-0.7) K/uL Baso # (Auto) 0.0 (0.0-0.1) K/uL Add Manual Diff YES Neutrophils % (Manual) 47 L (48.0-80.0) % Band Neutrophils % 16 % Lymphocytes % (Manual) 22 (16.0-40.0) % Monocytes % (Manual) 12 (0.0-15.0) % Eosinophils % (Manual) 3 (0.0-7.0) % Nucleated RBC % 0.0 0.0 /100WBC Absolute Seg Neuts 4.7 (1.4-5.7) Band Neutrophils # 1.6 Lymphocytes # (Manual) 2.2 (0.6-2.4) Monocytes # (Manual) 1.2 H (0.0-0.8) Eosinophils # (Manual) 0.3 (0.0-0.7) Nucleated RBCs # 0 0 K/uL Sodium 137 (136-148) mmol/L Potassium 3.5 (3.5-5.1) mmol/L Chloride 103 (98-107) mmol/L Carbon Dioxide 24.6 (21.0-32.0) mmol/L BUN 12 (7.0-18.0) mg/dL Creatinine 0.9 (0.8-1.3) mg/dL Est Cr Clr Drug Dosing 112.94 mL/min Estimated GFR (MDRD) > 60.0 ml/min Glucose 92 (74-106) mg/dL Calcium 8.2 L (8.5-10.1) mg/dL Total Bilirubin 0.3 (0.2-1.0) mg/dL AST 20 (15-37) IU/L ALT 30 (14-63) IU/L Alkaline Phosphatase 78 (46-116) U/L Total Protein 6.7 (6.4-8.2) g/dL Albumin 2.8 L (3.4-5.0) g/dL Globulin 3.9 (2.6-4.0) g/dL Albumin/Globulin Ratio 0.7 L (0.9-1.6) 11/30/18 Range/Units 05:18 WBC (4.0-11.0) K/uL RBC (4.50-5.90) M/uL Hgb (13.0-17.0) g/dL Hct (38.0-50.0) % MCV (80.0-98.0) fL MCH (27.0-32.0) pg MCHC (31.0-37.0) g/dL RDW Std Deviation (28.0-62.0) fl RDW Coeff of Cindy (11.0-15.0) % Plt Count (150-400) K/uL MPV (7.40-12.00) fL Neut % (Auto) (48.0-80.0) % Lymph % (Auto) (16.0-40.0) % [place] % (Auto) (0.0-15.0) % Eos % (Auto) (0.0-7.0) % Baso % (Auto) (0.0-1.5) % Neut # (Auto) (1.4-5.7) K/uL Lymph # (Auto) (0.6-2.4) K/uL [place] # (Auto) (0.0-0.8) K/uL Eos # (Auto) (0.0-0.7) K/uL Baso # (Auto) (0.0-0.1) K/uL Add Manual Diff Neutrophils % (Manual) (48.0-80.0) % Band Neutrophils % % Lymphocytes % (Manual) (16.0-40.0) % Monocytes % (Manual) (0.0-15.0) % Eosinophils % (Manual) (0.0-7.0) % Nucleated RBC % /100WBC Absolute Seg Neuts (1.4-5.7) Band Neutrophils # Lymphocytes # (Manual) (0.6-2.4) Monocytes # (Manual) (0.0-0.8) Eosinophils # (Manual) (0.0-0.7) Nucleated RBCs # K/uL Sodium 136 (136-148) mmol/L Potassium 3.5 (3.5-5.1) mmol/L Chloride 103 (98-107) mmol/L Carbon Dioxide 26.4 (21.0-32.0) mmol/L BUN 11 (7.0-18.0) mg/dL Creatinine 1.0 (0.8-1.3) mg/dL Est Cr Clr Drug Dosing 101.65 mL/min Estimated GFR (MDRD) > 60.0 ml/min Glucose 93 (74-106) mg/dL Calcium 8.2 L (8.5-10.1) mg/dL Total Bilirubin 0.3 (0.2-1.0) mg/dL AST 17 (15-37) IU/L ALT 31 (14-63) IU/L Alkaline Phosphatase 73 (46-116) U/L Total Protein 6.4 (6.4-8.2) g/dL Albumin 2.7 L (3.4-5.0) g/dL Globulin 3.7 (2.6-4.0) g/dL Albumin/Globulin Ratio 0.7 L (0.9-1.6) CASSIDY Results - Last 24 hrs: Microbiology 11/29/18 05:25 Campylobacter Antigen Assay - Final Stool / Feces NEGATIVE CAMPYLOBACTER AG REFERENCE RANGE: NEGATIVE Shiga Toxin I - Final NEGATIVE FOR SHIGA TOXIN 1 REFERENCE RANGE: NEGATIVE Shiga Toxin II - Final NEGATIVE FOR SHIGA TOXIN 2 REFERENCE RANGE: NEGATIVE Med Orders - Current: Current Medications Levofloxacin/Dextrose 750 mg/ (Premix) 150 mls @ 100 mls/hr IV Q24H [facility] Last Admin: 11/30/18 01:07 Dose: 100 mls/hr Metronidazole 500 mg/ Premix 100 mls @ 100 mls/hr IV Q6H [facility] Last Admin: 11/30/18 07:11 Dose: 100 mls/hr Sodium Chloride (Normal Saline) 1,000 mls @ 125 mls/hr IV ASDIRECTED [facility] Last Admin: 11/30/18 00:02 Dose: 125 mls/hr Morphine Sulfate (Morphine) 2 mg IVPUSH Q4H PRN PRN Reason: Pain Sodium Chloride (Saline Flush) 10 ml FLUSH ASDIRECTED PRN PRN Reason: Keep Vein Open Sodium Chloride (Saline Flush) 2.5 ml FLUSH ASDIRECTED PRN PRN Reason: Keep Vein Open Discontinued Medications Sodium Chloride (Normal Saline) 1,000 mls @ 999 mls/hr IV STAT ONE Stop: 11/28/18 22:58 Last Admin: 11/28/18 22:15 Dose: 999 mls/hr Metronidazole 500 mg/ Premix 100 mls @ 100 mls/hr IV ONETIME ONE Stop: 11/29/18 01:58 Last Admin: 11/29/18 01:10 Dose: 100 mls/hr Levofloxacin/Dextrose 750 mg/ (Premix) 150 mls @ 100 mls/hr IV ONETIME ONE Stop: 11/29/18 02:29 Last Admin: 11/29/18 02:10 Dose: 100 mls/hr Iopamidol (Isovue Multipack-370 (76%)) 100 ml IVPUSH ONETIME STA Stop: 11/28/18 23:47 Last Admin: 11/28/18 23:46 Dose: 100 ml
== END 2018-11-30 12:27 | disposition home or self-care (01) ==
LOC: MW.ED 21:30 → MW.MS 11-29 03:04
PROVIDERS: ADMIT Internal Medicine; ATTEND Internal Medicine
DX: K52.9 Noninfective gastroenteritis and colitis, unspecified (principal); F17.200 Nicotine dependence, unspecified, uncomplicated
CPT/HCPCS: 36415; 74177; 80053; 81001; 83690; 85025; 87046; 87324; 87899; 96361; 96365; 96366; 96367; 99285; A4217; G0378; J1956; J3490; J7040; Q9967